=== PATIENT | male | born 1970 | race Two or more races ===

== ENCOUNTER 2019-03-13 20:04 | Emergency (ER) | payer OTHER ==
[~2019-03-13] VITALS: Ht 172.7 cm; Wt 95.3 kg
--- NOTE | 2019-03-13 20:12 | NUR ---
PT TO ER BED 11. AAOX4. NO RESP DISTRESS, BREATHING EVEN AND UNLABORED. AMBULATORY. CAME IN WITH C/O L FLANK PAIN 05/01. URINE COLLECTED AND SENT TO LAB. AWAITING MD MARSHALL.
--- NOTE | 2019-03-13 20:25 | NUR ---
B MAIKEL, PAC IS AT THE BEDSIDE.
[2019-03-13] MEDS ORDERED: KETOROLAC TROMETHAMINE INJ 30 MG/ML VIAL IV ONE (20:30)
[2019-03-13] MEDS ORDERED: MORPHINE SULFATE INJ 2 MG/ML DISP.SYRIN IV ONE ×2 (20:30→22:00)
[2019-03-13] MEDS ORDERED: ONDANSETRON HCL/PF 4 MG/2 ML VIAL IVP ONE (20:30)
[2019-03-13] MEDS ORDERED: IV NS 0.9% 1,000 ML BAG IV ONE (20:30)
--- NOTE | 2019-03-13 20:30 | NUR ---
URINE SAMPLE OBTAINED AND SENT TO LAB.
--- NOTE | 2019-03-13 20:38 | NUR ---
SATELLITE DISH INSTALLER IS AT THE BEDSIDE FOR DRAW.
[2019-03-13] MEDS ORDERED: ONDANSETRON HCL/PF 4 MG/2 ML VIAL ONE (20:42)
[2019-03-13] MEDS ORDERED: KETOROLAC TROMETHAMINE INJ 30 MG/ML VIAL ONE (20:42)
[2019-03-13] MEDS ORDERED: MORPHINE SULFATE INJ 4 MG/ML DISP.SYRIN ONE ×2 (20:42→21:47)
[2019-03-13 20:44] LABS: BILIRUBIN,URINE Negative (NEGATIVE); BLOOD, URINE Large Ery/uL (NEGATIVE); COLOR,URINE Dark (YELLOW); KETONES,URINE Trace (NEGATIVE); LEUKOCYTE ESTERASE ,URINE Negative (NEGATIVE); NITRITE, URINE Negative (NEGATIVE); PH,URINE 5.5 (5.0-8.0); PROTEIN,URINE 30 mg/dl (NEGATIVE); UGLUCOSE Negative (NEGATIVE)
[2019-03-13 20:44] LABS: BASOPHILS % (AUTO) 0.5 % (0.0-2.0); EOSINOPHILS % (AUTO) 1.8 % (0.0-6.0); HEMATOCRIT 41 % (39-51); HEMOGLOBIN 13.9 g/dL (13.5-17.5); LYMPHOCYTES # (AUTO) 1.6 /CMM (0.8-4.8); LYMPHOCYTES % (AUTO) 19.3 % (20.0-44.0); MEAN CORPUSCULAR HGB CONC 34 g/dl (31.0-36.0); MEAN CORPUSCULAR VOLUME 97 fL (80-96); MONOCYTES # (AUTO) 0.4 /CMM (0.1-1.30); MONOCYTES % (AUTO) 5.2 % (2.0-12.0); NEUTROPHILS # (AUTO) 5.9 /CMM (1.8-8.9); NEUTROPHILS % (AUTO) 73.2 % (43.0-81.0); PLATELET COUNT (AUTO) 178 /CMM (150-450); RED BLOOD CELL COUNT(AUTO) 4.18 MIL/uL (4.5-6.0); WHITE BLOOD COUNT (AUTO) 8.1 K/uL (4.3-11.0)
--- NOTE | 2019-03-13 20:50 | NUR ---
IV LINE OBTAINED ON L AC 18G.
--- NOTE | 2019-03-13 20:58 | NUR ---
WELDING SYSTEMS AND EQUIPMENT REPAIRER AT BEDSIDE TO [place] [facility]ORY PROFESSOR PT VIA W/C
[2019-03-13 21:00] LABS: ALBUMIN 3.5 g/dL (3.4-5.0); BILIRUBIN,DIRECT 0.2 mg/dL (0.0-0.2); BILIRUBIN,TOTAL 0.9 mg/dL (0.2-1.0); CALCIUM, SERUM 8.5 mg/dL (8.5-10.1); CREATININE 1.2 mg/dL (0.6-1.3); POTASSIUM 3.5 mmol/L (3.5-5.1); TOTAL PROTEIN, SERUM 6.8 g/dL (6.4-8.2)
[2019-03-13 21:02] LABS: APPEARANCE,URINE HAZY (CLEAR); BACTERIA,URINE None seen /HPF (None Seen); RBC,URINE 20-30 /HPF (0-2)
[2019-03-13 21:03] LABS: SQUAMOUS EPITHELIAL CELL,UR OCCASIONAL /HPF (None Seen)
--- NOTE | 2019-03-13 21:14 | NUR ---
PT RETURNED FROM CT VIA [facility].
[2019-03-13] MEDS ORDERED: TAMSULOSIN 0.4 MG CAP.SR.24H ONE (22:59)
[2019-03-13] MEDS ORDERED: TAMSULOSIN 0.4 MG CAP.SR.24H PO ONE (23:00)
[2019-03-13 23:14] VITALS: BP 154/92
== END 2019-03-13 23:16 | disposition home or self-care (01) ==
LOC: ER 20:08
DX: N13.2 Hydronephrosis with renal and ureteral calculous obstruction (principal); R11.2 Nausea with vomiting, unspecified
CPT/HCPCS: 36415; 74176; 80048; 80076; 81001; 83690; 85025; 87077; 87086; 96361; 96374; 96375; 96376; 99284; J1885; J2270 ×2; J2405; J7030; 81000-TC